=== PATIENT | male | born 1990 | race Caucasian/White ===

== ENCOUNTER 2018-05-20 20:46 | Emergency (ER) | payer MEDICAID, SELFPAY ==
[2018-05-20] MEDS ORDERED: Amoxicillin/Potassium Clav 875 MG TAB ONE (21:08)
[2018-05-20] MEDS ORDERED: Rabies Vaccine Human 2.5 UNITS VIAL ONE ×2 (22:20→22:51)
== END 2018-05-21 00:20 | disposition home or self-care (01) ==
LOC: NAV ERS 20:46
DX: S70.372A Other superficial bite of left thigh, initial encounter (principal); F41.9 Anxiety disorder, unspecified; F32.9 Major depressive disorder, single episode, unspecified; Z79.899 Other long term (current) drug therapy; W54.0XXA Bitten by dog, initial encounter
CPT/HCPCS: 90376; 90471; 90675; 96372